=== PATIENT | male | born 1950 | race African-American/Black ===

== ENCOUNTER 2022-01-29 12:04 | Inpatient (IN) | payer MEDICAID ==
[~2022-01-29] VITALS: Ht 167.6 cm; Wt 79.4 kg
[2022-01-29 14:36] LABS: CHLORIDE 101 mEq/L (98-107)
[2022-01-29 14:41] LABS: BASOPHILS % 0.3 % (0.0-2.0); HEMATOCRIT. 40.3 % (42.0-52.0); HEMOGLOBIN. 14.1 g/dL (14.0-18.0); LYMPHOCYTES % 34.9 % (20.0-50.0); MEAN CORPUSCULAR HEMOGLOBIN 29.1 pg (28.0-32.0); MEAN CORPUSCULAR VOLUME 83.3 fL (80.0-94.0); MEAN PLATELET VOLUME 8.6 fl (7.4-10.4); NEUTROPHILS % 55.8 % (40.0-76.0); PLATELET 211 x1000/uL (130-400); RED BLOOD CELL COUNT 4.83 mill/uL (4.7-6.1); RED CELL DISTRIBUTION WIDTH 13.3 % (11.6-14.6)
[2022-01-29] MEDS ORDERED: DOCUSATE SODIUM 100MG CAPSULE PO PRN (15:30)
[2022-01-29] MEDS ORDERED: CLONIDINE 0.1MG TABLET PO PRN (15:30)
[2022-01-29] MEDS ORDERED: ACETAMINOPHEN 325MG TABLET PO PRN ×2 (15:30)
[2022-01-29] MEDS ORDERED: ONDANSETRON HCL 4MG/2ML INJ IV PRN (15:30)
[2022-01-29] MEDS ORDERED: IPRATROPIUM/ALBUTEROL 0.5-3(2.5)MG/3ML NEB HHN PRN (15:30)
[2022-01-29] MEDS ORDERED: GUAIFENESIN 200MG/10ML SUGAR FREE UDC PO PRN (15:30)
[2022-01-29 16:54] LABS: CLARITY URINE CLEAR (CLEAR); COLOR URINE YELLOW (YELLOW); KETONES URINE NEGATIVE (NEGATIVE); LEUKOCYTE ESTERASE URINE NEGATIVE (NEGATIVE); NITRITE URINE NEGATIVE (NEGATIVE); OCCULT BLOOD URINE NEGATIVE (NEGATIVE); PH URINE 5.5 (4.5-8.0); PROTEIN URINE NEGATIVE (NEGATIVE); SPECIFIC GRAVITY URINE 1.014 (1.005-1.030); UROBILINOGEN URINE 0.2 E.U./dL (0.2-1.0)
[2022-01-29 17:00] LABS: D-DIMER 0.35 mg/L FEU (<0.50); PROTHROMBIN TIME 11.2 sec (9.6-11.0)
[2022-01-29] MEDS: ENOXAPARIN 40MG/0.4ML SYR SUBCUT SCH (17:18)
[2022-01-29] MEDS: ATORVASTATIN CALCIUM 40MG TABLET PO SCH (21:55)
[2022-01-29] MEDS: FAMOTIDINE 20MG TABLET PO SCH (21:56)
[2022-01-30] VITALS (7 sets, daily range): BP systolic 116–141; BP diastolic 47–82
[2022-01-30] MEDS ORDERED: ATOR-2 MT (08:57)
[2022-01-30] MEDS ORDERED: ASPI-1497 MT (08:57)
[2022-01-30] MEDS ORDERED: CLOP-31 MT (08:57)
[2022-01-30] MEDS ORDERED: ASPIRIN 81MG EC TABLET PO SCH (09:00)
[2022-01-30] MEDS ORDERED: CLOPIDOGREL 75MG TABLET PO SCH (09:00)
[2022-01-30] MEDS ORDERED: LIDOCAINE HCL 1% 20ML VIAL (Pyxis) INJ ONE (10:08)
[2022-01-30] MEDS ORDERED: IODIXANOL 320MG/ML 100 ML BOTTLE IV ONE (10:09)
[2022-01-30] MEDS ORDERED: HEPARIN 1000 UNITS/ML 10ML ONE (10:09)
[2022-01-30] MEDS ORDERED: FENTANYL CITRATE/PF 50MCG/ML 2ML VIAL ONE (10:45)
[2022-01-30] MEDS ORDERED: MIDAZOLAM HCL 2 MG/2 ML VIAL ONE (10:45)
[2022-01-30] MEDS ORDERED: ASPIRIN/SOD BICARB/CITRIC ACID 324MG TAB EFF ONE (10:45)
[2022-01-30 11:29] LABS: BASOPHILS % 0.6 % (0.0-2.0); EOSINOPHILS % 4.3 % (0.0-5.0); HEMATOCRIT. 42.4 % (42.0-52.0); HEMOGLOBIN. 14.7 g/dL (14.0-18.0); LYMPHOCYTES % 35.5 % (20.0-50.0); MEAN CORPUSCULAR HEMOGLOBIN 29.2 pg (28.0-32.0); MEAN CORPUSCULAR VOLUME 84.2 fL (80.0-94.0); MEAN PLATELET VOLUME 8.8 fl (7.4-10.4); MONOCYTES % 6.8 % (2.0-8.0); NEUTROPHILS % 52.8 % (40.0-76.0); PLATELET 200 x1000/uL (130-400); RED BLOOD CELL COUNT 5.04 mill/uL (4.7-6.1); RED CELL DISTRIBUTION WIDTH 13.7 % (11.6-14.6)
[2022-01-30] MEDS ORDERED: ATROPINE SULFATE 1MG/10ML SYR IV PRN (11:30)
[2022-01-30] MEDS ORDERED: ACETAMINOPHEN 325MG TABLET PO PRN ×2 (11:30→12:30)
[2022-01-30 11:40] LABS: CHLORIDE 101 mEq/L (98-107)
[2022-01-30 11:52] LABS: CREATINE KINASE 73 IU/L (39-308); CREATINE KINASE MB FRACTION < 1.0 ng/mL (0.5-3.6)
[2022-01-30 11:54] LABS: HDL CHOLESTEROL 41 mg/dL (40-59); LDL CHOLESTEROL 141 mg/dL (5-100); T4 FREE 1.07 ng/dL (0.76-1.46)
[2022-01-30] MEDS ORDERED: NALOXONE HCL 0.4MG/ML VIAL IV PRN (12:00)
[2022-01-30] MEDS ORDERED: SODIUM CHLORIDE 0.45% 1,000 ML IV ONE (12:00)
[2022-01-30 13:19] LABS: BASOPHILS % 0.3 % (0.0-2.0); EOSINOPHILS % 3.6 % (0.0-5.0); HEMATOCRIT. 41.9 % (42.0-52.0); HEMOGLOBIN. 14.7 g/dL (14.0-18.0); LYMPHOCYTES % 35.5 % (20.0-50.0); MEAN CORPUSCULAR HEMOGLOBIN 29.1 pg (28.0-32.0); MEAN CORPUSCULAR VOLUME 83.1 fL (80.0-94.0); MEAN PLATELET VOLUME 8.6 fl (7.4-10.4); MONOCYTES % 5.9 % (2.0-8.0); NEUTROPHILS % 54.7 % (40.0-76.0); PLATELET 216 x1000/uL (130-400); RED BLOOD CELL COUNT 5.05 mill/uL (4.7-6.1); RED CELL DISTRIBUTION WIDTH 13.6 % (11.6-14.6)
[2022-01-30] MEDS ORDERED: DEXT 5%/0.9% NACL 1,000 ML IV SCH (14:45)
[2022-01-30 15:56] LABS: PARTIAL THROMBOPLASTIN TIME 32.5 sec (23.4-31.0); PROTHROMBIN TIME 11.1 sec (9.6-11.0)
[2022-01-30] MEDS: ENOXAPARIN 40MG/0.4ML SYR SUBCUT SCH (17:00)
[2022-01-30] MEDS ORDERED: DEXT 5%/0.45% NACL 1000ML 1,000 ML IV SCH (20:00)
[2022-01-30] MEDS: FAMOTIDINE 20MG TABLET PO SCH (20:54)
[2022-01-30] MEDS: ATORVASTATIN CALCIUM 40MG TABLET PO SCH (20:54)
[2022-01-31] VITALS (7 sets, daily range): BP systolic 92–128; BP diastolic 50–79
[2022-01-31 07:52] LABS: BASOPHILS % 0.4 % (0.0-2.0); EOSINOPHILS % 4.9 % (0.0-5.0); HEMOGLOBIN. 14.8 g/dL (14.0-18.0); LYMPHOCYTES % 26.5 % (20.0-50.0); MEAN CORPUSCULAR HEMOGLOBIN 29.3 pg (28.0-32.0); MEAN CORPUSCULAR VOLUME 82.9 fL (80.0-94.0); MEAN PLATELET VOLUME 8.8 fl (7.4-10.4); MONOCYTES % 5.3 % (2.0-8.0); NEUTROPHILS % 62.9 % (40.0-76.0); PLATELET 197 x1000/uL (130-400); RED BLOOD CELL COUNT 5.07 mill/uL (4.7-6.1); RED CELL DISTRIBUTION WIDTH 13.7 % (11.6-14.6)
[2022-01-31 09:30] LABS: CHLORIDE 103 mEq/L (98-107)
[2022-01-31] MEDS: ASPIRIN 81MG TABLET PO SCH (12:56)
[2022-01-31] MEDS ORDERED: DOCUSATE SODIUM 100MG CAPSULE PO SCH (21:00)
[2022-01-31] MEDS ORDERED: BISACODYL 10MG SUPP PR PRN (21:00)
[2022-01-31] MEDS ORDERED: CHLORHEXIDINE GLUCONATE 4% EXTERNAL USE TOP SCH (21:00)
[2022-01-31] MEDS ORDERED: ASCORBIC ACID 500 MG TABLET PO SCH (21:00)
[2022-01-31] MEDS ORDERED: DIPHENHYDRAMINE 25MG CAPSULE PO PRN (21:00)
[2022-01-31] MEDS: FAMOTIDINE 20MG TABLET PO SCH (21:14)
[2022-01-31] MEDS: ATORVASTATIN CALCIUM 40MG TABLET PO SCH (21:14)
[2022-01-31] MEDS: ALLOPURINOL 300 MG TABLET PO SCH (21:17)
[2022-02-01] VITALS (54 sets, daily range): BP systolic 96–152; BP diastolic 43–86
[2022-02-01] MEDS: DEXT 5%/0.45% NACL 1000ML 1,000 ML IV SCH ×2 (00:03→09:16)
[2022-02-01] MEDS ORDERED: BLOOD SUGAR DIAGNOSTIC STRIP TEST SCH ×2 (04:00→12:00)
[2022-02-01] MEDS ORDERED: CEFAZOLIN 2,000 MG in DEXT 5% WATER 100 ML IV NR (04:00)
[2022-02-01] MEDS ORDERED: DOBUTAMINE 250MG PREMIX 250 ML IV SCH (04:00)
[2022-02-01] MEDS ORDERED: NOREPINEPHRINE 8 MG in DEXT 5% WATER 242 ML IV PRN (04:00)
[2022-02-01] MEDS ORDERED: DEL NIDO ELECTROLYTE-S(PH 7.4) 1,000 ML IV NR ×2 (04:00)
[2022-02-01] MEDS ORDERED: NICARDIPINE 40MG/200ML PREMIX 200 ML IV PRN (04:00)
[2022-02-01] MEDS ORDERED: EPINEPHRINE 5 MG in DEXT 5% WATER 245 ML IV PRN ×2 (04:00→10:30)
[2022-02-01] MEDS ORDERED: PAPAVERINE HCL 180MG in SODIUM CHLORIDE 0.9% 24ML IV NR (04:00)
[2022-02-01] MEDS ORDERED: INSULIN REGULAR 100U/100ML PMX 100 ML IV NR (04:00)
[2022-02-01 04:07] LABS: BASOPHILS % 0.2 % (0.0-2.0); EOSINOPHILS % 7.9 % (0.0-5.0); HEMATOCRIT. 40.7 % (42.0-52.0); HEMOGLOBIN. 14.5 g/dL (14.0-18.0); LYMPHOCYTES % 26.8 % (20.0-50.0); MEAN CORPUSCULAR HEMOGLOBIN 29.6 pg (28.0-32.0); MEAN PLATELET VOLUME 8.4 fl (7.4-10.4); MONOCYTES % 6.8 % (2.0-8.0); NEUTROPHILS % 58.3 % (40.0-76.0); PLATELET 188 x1000/uL (130-400); RED CELL DISTRIBUTION WIDTH 13.3 % (11.6-14.6)
[2022-02-01 04:22] LABS: CHLORIDE 103 mEq/L (98-107)
[2022-02-01] MEDS ORDERED: HEPARIN 1000 UNITS/ML 10ML ONE ×2 (05:33→09:14)
[2022-02-01] MEDS ORDERED: POLYMYXIN B SULFATE 500000 UNITS/VIAL ONE (05:35)
[2022-02-01] MEDS ORDERED: THROMBIN (BOVINE) 5000 UNITS/VIAL TOP ONE (05:35)
[2022-02-01] MEDS ORDERED: DOPAMINE 400MG/250ML PREMIX 250 ML IV ONE (05:36)
[2022-02-01] MEDS ORDERED: SKIN ADHESIVE 0.7 GM EA TOP ONE (05:36)
[2022-02-01] MEDS: ALLOPURINOL 300 MG TABLET PO SCH (05:36)
[2022-02-01] MEDS ORDERED: NICARDIPINE 40MG/200ML PREMIX 200 ML IV ONE (06:17)
[2022-02-01] MEDS ORDERED: SEVOFLURANE 250 ML LIQUID INH ONE (06:18)
[2022-02-01] MEDS ORDERED: FENTANYL CITRATE/PF 50MCG/ML 2ML VIAL ONE (07:38)
[2022-02-01] MEDS ORDERED: ROCURONIUM BROMIDE 10MG/ML VIAL 5ML IV ONE ×2 (07:38→09:16)
[2022-02-01] MEDS: ASPIRIN 81MG TABLET PO SCH (09:00)
[2022-02-01] MEDS ORDERED: CHLORHEXIDINE GLUCONATE 4% EXTERNAL USE TOP SCH (09:00)
[2022-02-01] MEDS ORDERED: DEXAMETHASONE 4MG/ML 1ML VIAL ONE (09:14)
[2022-02-01] MEDS ORDERED: SODIUM BICARBONATE 8.4% 1 MEQ/ML 50ML SYR IV ONE (09:14)
[2022-02-01] MEDS ORDERED: MAGNESIUM 2 G PREMIX 50 ML IV PRN ×2 (09:15→10:30)
[2022-02-01] MEDS ORDERED: MAGNESIUM SULFATE 3 GM in DEXT 5% WATER 100 ML IV PRN ×2 (09:15→10:30)
[2022-02-01] MEDS ORDERED: MAGNESIUM 1 G PREMIX 100 ML IV PRN ×2 (09:15→10:30)
[2022-02-01] MEDS ORDERED: DEXTROSE 50% WATER 50ML SYRINGE IV PRN ×2 (09:15)
[2022-02-01] MEDS ORDERED: KCL 10MEQ/50ML PREMIX 150 ML IV PRN (09:15)
[2022-02-01] MEDS ORDERED: PROTAMINE SULFATE 10MG/ML VIAL 25ML IV ONE (09:32)
[2022-02-01] MEDS ORDERED: DEXMEDETOMIDINE 400 MCG/100 ML 100 ML IV ONE (09:32)
[2022-02-01] MEDS ORDERED: CALCIUM CHLORIDE 1GM/10ML SYR IV ONE (09:44)
[2022-02-01] MEDS ORDERED: NEOSTIGMINE METHYLSULFATE 1MG/ML 10 ML VIAL ONE (10:10)
[2022-02-01] MEDS ORDERED: GLYCOPYRROLATE 0.2 MG/ML 2ML VIAL ONE ×2 (10:10→10:11)
[2022-02-01] MEDS ORDERED: ALBUMIN HUMAN 25GM/100ML (25%) IV PRN (10:30)
[2022-02-01] MEDS ORDERED: CALCIUM CHLORIDE 5,000 MG in DEXT 5% WATER 500 ML IV PRN (10:30)
[2022-02-01] MEDS ORDERED: DOPAMINE 400MG/250ML PREMIX 250 ML IV PRN (10:30)
[2022-02-01] MEDS ORDERED: CEFAZOLIN 1000MG PREMIX 50 ML IV SCH (10:30)
[2022-02-01] MEDS ORDERED: CALCIUM CHLORIDE 3,000 MG in DEXT 5% WATER 250 ML IV PRN (10:30)
[2022-02-01] MEDS ORDERED: ALBUMIN HUMAN 12.5G/250ML (5%) IV PRN (10:30)
[2022-02-01] MEDS ORDERED: SODIUM CHLORIDE 0.9% 500 ML IV PRN (10:30)
[2022-02-01] MEDS ORDERED: ONDANSETRON HCL 4MG/2ML INJ IV PRN (10:30)
[2022-02-01] MEDS ORDERED: ACETAMINOPHEN 325MG TABLET PO PRN (10:30)
[2022-02-01 11:00] LABS: BG BASE EXCESS 0.6 mmol/L (-2.0-2.0); BG CARBOXYHEMOGLOBIN 0.4 % (0.5-1.5); BG DEOXYHEMOGLOBIN 1.6 % (0.0-5.0); BG FRACTION INSPIRED OXYGEN 80; BG HCO3 ACT 26.8 mmol/L (22.0-26.0); BG OXYGEN SATURATION 98.4 % (92.0-98.5); BG PCO2 49.1 mmHg (35.0-45.0); BG PH 7.355 (7.350-7.450); BG PO2 145.6 mmHg (75.0-100.0); BG SAMPLE SITE ALINE; BG TOTAL HEMOGLOBIN 13.8 g/dL (12.0-18.0); BG VENT MODE MASK - SIMPLE
[2022-02-01] MEDS ORDERED: FENTANYL CITRATE/PF 50MCG/ML 2ML VIAL IV PRN (11:00)
[2022-02-01] MEDS ORDERED: DEXT 5%/0.45% NACL 1000ML 1,000 ML IV SCH (11:00)
[2022-02-01] MEDS: ALBUMIN HUMAN 25GM/100ML (25%) IV NR ×2 (11:00→18:54)
[2022-02-01] MEDS: BLOOD SUGAR DIAGNOSTIC STRIP TEST SCH ×12 (11:06→21:42)
[2022-02-01] MEDS: IPRATROPIUM/ALBUTEROL 0.5-3(2.5)MG/3ML NEB HHN SCH ×3 (11:38→20:18)
[2022-02-01 11:44] LABS: CHLORIDE 114 mEq/L (98-107)
[2022-02-01] MEDS: MORPHINE SULFATE 2 MG/ML CPJ (NOT FOR IM USE) IV PRN ×2 (11:48→20:40)
[2022-02-01 11:52] LABS: EOSINOPHILS % 1.9 % (0.0-5.0); HEMATOCRIT. 28.2 % (42.0-52.0); HEMOGLOBIN. 9.9 g/dL (14.0-18.0); MEAN CORPUSCULAR HEMOGLOBIN 29.3 pg (28.0-32.0); MEAN CORPUSCULAR VOLUME 83.4 fL (80.0-94.0); MEAN PLATELET VOLUME 8.7 fl (7.4-10.4); MONOCYTES % 1.1 % (2.0-8.0); PLATELET 132 x1000/uL (130-400); RED BLOOD CELL COUNT 3.39 mill/uL (4.7-6.1); RED CELL DISTRIBUTION WIDTH 13.2 % (11.6-14.6)
[2022-02-01] MEDS ORDERED: INSULIN REGULAR 100U/100ML PMX 100 ML IV PRN (12:00)
[2022-02-01] MEDS: KCL 10MEQ/50ML PREMIX 200 ML IV PRN ×3 (12:29→14:53)
[2022-02-01] MEDS: CEFAZOLIN 1000MG PREMIX 50 ML IV SCH ×2 (13:55→21:43)
[2022-02-01] MEDS: BACITRACIN 15GM TUBE TOP SCH (16:02)
[2022-02-01 17:02] LABS: HEMATOCRIT. 32.1 % (42.0-52.0); HEMOGLOBIN. 11.4 g/dL (14.0-18.0); MEAN CORPUSCULAR HEMOGLOBIN 29.3 pg (28.0-32.0); MEAN CORPUSCULAR VOLUME 82.3 fL (80.0-94.0); MEAN PLATELET VOLUME 8.5 fl (7.4-10.4); PLATELET 173 x1000/uL (130-400); RED CELL DISTRIBUTION WIDTH 13.3 % (11.6-14.6)
[2022-02-01 17:08] LABS: CHLORIDE 105 mEq/L (98-107)
[2022-02-01] MEDS: DOCUSATE SODIUM 100MG CAPSULE PO SCH (17:28)
[2022-02-01 17:31] LABS: PLATELET ESTIMATE NORMAL
[2022-02-01] MEDS ORDERED: ALBUMIN HUMAN 25GM/100ML (25%) IV NR (18:00)
[2022-02-01] MEDS: DIPHENHYDRAMINE 50MG/ML VIAL IV PRN (20:37)
[2022-02-01] MEDS: ATORVASTATIN CALCIUM 40MG TABLET PO SCH (21:42)
[2022-02-01] MEDS: KETOROLAC 30MG/ML VIAL IV PRN (22:10)
[2022-02-02] VITALS (84 sets, daily range): BP systolic 97–154; BP diastolic 22–87
[2022-02-02] MEDS: BLOOD SUGAR DIAGNOSTIC STRIP TEST SCH ×8 (00:19→21:27)
[2022-02-02] MEDS: ALBUMIN HUMAN 25GM/100ML (25%) IV NR ×2 (00:20→11:30)
[2022-02-02] MEDS: IPRATROPIUM/ALBUTEROL 0.5-3(2.5)MG/3ML NEB HHN SCH ×6 (00:41→20:20)
[2022-02-02] MEDS: DIPHENHYDRAMINE 50MG/ML VIAL IV PRN ×2 (01:11→21:25)
[2022-02-02] MEDS: MORPHINE SULFATE 2 MG/ML CPJ (NOT FOR IM USE) IV PRN ×3 (01:11→21:26)
[2022-02-02 02:34] LABS: BASOPHILS % 0.1 % (0.0-2.0); HEMATOCRIT. 31.1 % (42.0-52.0); HEMOGLOBIN. 10.8 g/dL (14.0-18.0); LYMPHOCYTES % 11.3 % (20.0-50.0); MEAN CORPUSCULAR HEMOGLOBIN 28.9 pg (28.0-32.0); MEAN CORPUSCULAR VOLUME 82.7 fL (80.0-94.0); MEAN PLATELET VOLUME 9.3 fl (7.4-10.4); MONOCYTES % 6.6 % (2.0-8.0); PLATELET 190 x1000/uL (130-400); RED BLOOD CELL COUNT 3.76 mill/uL (4.7-6.1); RED CELL DISTRIBUTION WIDTH 13.8 % (11.6-14.6)
[2022-02-02 02:43] LABS: CHLORIDE 103 mEq/L (98-107)
[2022-02-02 06:23] LABS: HEMATOCRIT. 27.6 % (42.0-52.0); HEMOGLOBIN. 9.9 g/dL (14.0-18.0); LYMPHOCYTES % 8.4 % (20.0-50.0); MEAN CORPUSCULAR HEMOGLOBIN 29.8 pg (28.0-32.0); MEAN CORPUSCULAR VOLUME 83.1 fL (80.0-94.0); MEAN PLATELET VOLUME 8.8 fl (7.4-10.4); MONOCYTES % 3.5 % (2.0-8.0); NEUTROPHILS % 88.1 % (40.0-76.0); PLATELET 158 x1000/uL (130-400); RED BLOOD CELL COUNT 3.33 mill/uL (4.7-6.1); RED CELL DISTRIBUTION WIDTH 13.4 % (11.6-14.6)
[2022-02-02 06:39] LABS: CHLORIDE 107 mEq/L (98-107)
[2022-02-02] MEDS: CEFAZOLIN 1000MG PREMIX 50 ML IV SCH (07:17)
[2022-02-02] MEDS: FAMOTIDINE 20MG TABLET PO SCH (08:45)
[2022-02-02] MEDS: ASPIRIN 81MG TABLET PO SCH (08:45)
[2022-02-02] MEDS: DOCUSATE SODIUM 100MG CAPSULE PO SCH ×2 (08:45→17:31)
[2022-02-02] MEDS ORDERED: FAMOTIDINE 20MG/2ML VIAL IV SCH (09:00)
[2022-02-02] MEDS: BACITRACIN 15GM TUBE TOP SCH ×2 (09:55→17:32)
[2022-02-02] MEDS: KCL 10MEQ/50ML PREMIX 100 ML IV PRN ×2 (10:44→11:53)
[2022-02-02] MEDS ORDERED: FUROSEMIDE 40MG/4ML VIAL IVP SCH (12:00)
[2022-02-02] MEDS: KETOROLAC 30MG/ML VIAL IV PRN (12:00)
[2022-02-02] MEDS: MINERAL OIL 30ML BOTTLE PO SCH ×2 (12:45→17:31)
[2022-02-02] MEDS ORDERED: MAGNESIUM 4 G PREMIX 100 ML IV SCH (13:00)
[2022-02-02] MEDS: INSULIN LISPRO 100 UNITS/ML SUBCUT SCH ×2 (18:41→22:10)
[2022-02-02] MEDS: ATORVASTATIN CALCIUM 40MG TABLET PO SCH (21:27)
[2022-02-03] VITALS (27 sets, daily range): BP systolic 88–141; BP diastolic 60–95
[2022-02-03] MEDS: IPRATROPIUM/ALBUTEROL 0.5-3(2.5)MG/3ML NEB HHN SCH ×6 (00:42→20:31)
[2022-02-03] MEDS: DIPHENHYDRAMINE 50MG/ML VIAL IV PRN (04:19)
[2022-02-03] MEDS: KETOROLAC 30MG/ML VIAL IV PRN ×2 (04:20→15:22)
[2022-02-03 05:29] LABS: EOSINOPHILS % 0.8 % (0.0-5.0); HEMATOCRIT. 30.8 % (42.0-52.0); HEMOGLOBIN. 10.7 g/dL (14.0-18.0); LYMPHOCYTES % 22.2 % (20.0-50.0); MEAN CORPUSCULAR HEMOGLOBIN 29.3 pg (28.0-32.0); MEAN CORPUSCULAR VOLUME 83.9 fL (80.0-94.0); MEAN PLATELET VOLUME 8.7 fl (7.4-10.4); MONOCYTES % 7.5 % (2.0-8.0); NEUTROPHILS % 69.5 % (40.0-76.0); PLATELET 211 x1000/uL (130-400); RED BLOOD CELL COUNT 3.67 mill/uL (4.7-6.1); RED CELL DISTRIBUTION WIDTH 13.7 % (11.6-14.6)
[2022-02-03 05:33] LABS: CHLORIDE 99 mEq/L (98-107)
[2022-02-03] MEDS: MORPHINE SULFATE 2 MG/ML CPJ (NOT FOR IM USE) IV PRN (05:37)
[2022-02-03] MEDS ORDERED: TRAMADOL HCL/ACETAMINOPHEN 37.5/325MG TABLET PO PRN (06:45)
[2022-02-03] MEDS: TAMSULOSIN HCL 0.4MG SR CAPSULE PO SCH ×2 (07:31→08:40)
[2022-02-03] MEDS: BLOOD SUGAR DIAGNOSTIC STRIP TEST SCH ×4 (07:50→21:14)
[2022-02-03] MEDS: MINERAL OIL 30ML BOTTLE PO SCH ×3 (08:20→17:00)
[2022-02-03] MEDS: DOCUSATE SODIUM 250MG CAPSULE PO SCH ×2 (08:20→17:00)
[2022-02-03] MEDS: FAMOTIDINE 20MG TABLET PO SCH (08:20)
[2022-02-03] MEDS: INSULIN LISPRO 100 UNITS/ML SUBCUT SCH ×4 (08:20→21:17)
[2022-02-03] MEDS: ASPIRIN 81MG TABLET PO SCH (08:20)
[2022-02-03] MEDS: BACITRACIN 15GM TUBE TOP SCH ×2 (08:23→17:42)
[2022-02-03] MEDS ORDERED: ASPIRIN 81MG TABLET PO SCH (09:00)
[2022-02-03] MEDS: ATORVASTATIN CALCIUM 40MG TABLET PO SCH (21:14)
[2022-02-04] VITALS (10 sets, daily range): BP systolic 95–138; BP diastolic 58–77
[2022-02-04] MEDS: IPRATROPIUM/ALBUTEROL 0.5-3(2.5)MG/3ML NEB HHN SCH ×7 (00:38→23:34)
[2022-02-04] MEDS: MORPHINE SULFATE 2 MG/ML CPJ (NOT FOR IM USE) IV PRN (04:06)
[2022-02-04] MEDS: INSULIN LISPRO 100 UNITS/ML SUBCUT SCH ×4 (06:57→21:00)
[2022-02-04] MEDS: BLOOD SUGAR DIAGNOSTIC STRIP TEST SCH ×4 (06:57→21:00)
[2022-02-04 07:22] LABS: BASOPHILS % 0.2 % (0.0-2.0); EOSINOPHILS % 4.7 % (0.0-5.0); HEMATOCRIT. 32.1 % (42.0-52.0); HEMOGLOBIN. 11.4 g/dL (14.0-18.0); LYMPHOCYTES % 30.2 % (20.0-50.0); MEAN CORPUSCULAR HEMOGLOBIN 29.6 pg (28.0-32.0); MEAN CORPUSCULAR VOLUME 83.5 fL (80.0-94.0); MEAN PLATELET VOLUME 8.5 fl (7.4-10.4); MONOCYTES % 7.9 % (2.0-8.0); PLATELET 196 x1000/uL (130-400); RED BLOOD CELL COUNT 3.85 mill/uL (4.7-6.1); RED CELL DISTRIBUTION WIDTH 13.4 % (11.6-14.6)
[2022-02-04 07:29] LABS: CHLORIDE 99 mEq/L (98-107)
[2022-02-04] MEDS ORDERED: FUROSEMIDE 40MG/4ML VIAL IVP NR (08:15)
[2022-02-04] MEDS ORDERED: MAGNESIUM 4 G PREMIX 100 ML IV NR (08:15)
[2022-02-04] MEDS: KETOROLAC 30MG/ML VIAL IV PRN ×2 (08:18→23:10)
[2022-02-04] MEDS: ASPIRIN 81MG TABLET PO SCH (09:06)
[2022-02-04] MEDS: DOCUSATE SODIUM 250MG CAPSULE PO SCH ×2 (09:06→16:24)
[2022-02-04] MEDS: TAMSULOSIN HCL 0.4MG SR CAPSULE PO SCH (09:06)
[2022-02-04] MEDS: FAMOTIDINE 20MG TABLET PO SCH (09:06)
[2022-02-04] MEDS: MINERAL OIL 30ML BOTTLE PO SCH ×2 (09:06→16:24)
[2022-02-04] MEDS: BACITRACIN 15GM TUBE TOP SCH ×2 (09:07→17:00)
[2022-02-04] MEDS ORDERED: LACTULOSE 20G/30ML UDC PO NR (15:30)
[2022-02-04] MEDS ORDERED: NALOXONE HCL 0.4MG/ML VIAL IV PRN (17:00)
[2022-02-04] MEDS: ATORVASTATIN CALCIUM 40MG TABLET PO SCH (22:07)
[2022-02-05] VITALS: BP 100/55
[2022-02-05] MEDS: IPRATROPIUM/ALBUTEROL 0.5-3(2.5)MG/3ML NEB HHN SCH ×3 (03:25→12:55)
[2022-02-05 04:05] VITALS: BP 91/65
[2022-02-05] MEDS: BLOOD SUGAR DIAGNOSTIC STRIP TEST SCH ×2 (06:38→11:50)
[2022-02-05 08:00] VITALS: BP 101/70
[2022-02-05] MEDS: TAMSULOSIN HCL 0.4MG SR CAPSULE PO SCH (08:55)
[2022-02-05] MEDS: FAMOTIDINE 20MG TABLET PO SCH (08:55)
[2022-02-05] MEDS: ASPIRIN 81MG TABLET PO SCH (08:55)
[2022-02-05] MEDS: DOCUSATE SODIUM 250MG CAPSULE PO SCH ×2 (08:55→09:00)
[2022-02-05] MEDS: BACITRACIN 15GM TUBE TOP SCH (08:56)
[2022-02-05] MEDS: MINERAL OIL 30ML BOTTLE PO SCH ×2 (08:56→09:00)
[2022-02-05] MEDS: INSULIN LISPRO 100 UNITS/ML SUBCUT SCH ×2 (08:57→13:21)
[2022-02-05 12:00] VITALS: BP 109/71
[2022-02-05 14:54] VITALS: BP 109/71
[2022-03-02] MEDS ORDERED: IBUP-2029 PO (13:12)
[2022-03-02] MEDS ORDERED: DOCU-138 PO (13:12)
[2022-03-02] MEDS ORDERED: METO25TA6 PO (13:14)
== END 2022-02-05 15:00 | disposition home health service (06) | DRG 165 ==
LOC: ER 12:04 → 8WST 15:45 → EDBEDREQTM 15:56 → EDBEDREQ 15:56 → ENRESERV 01-30 06:29 → 3WST 01-30 12:11 → CVICU 02-01 09:45 → 3WST 02-04 04:01
PROVIDERS: ADMIT Internal Medicine; ATTEND Internal Medicine
PROC: 4A023N7 Measurement of Cardiac Sampling and Pressure, Left Heart, Percutaneous Approach (ICD-10-PCS; 2022-01-30)
PROC: B2111ZZ Fluoroscopy of Multiple Coronary Arteries using Low Osmolar Contrast (ICD-10-PCS; 2022-01-30)
PROC: 02100Z9 Bypass Coronary Artery, One Artery from Left Internal Mammary, Open Approach (ICD-10-PCS; principal; 2022-02-01)
PROC: 021109W Bypass Coronary Artery, Two Arteries from Aorta with Autologous Venous Tissue, Open Approach (ICD-10-PCS; 2022-02-01)
PROC: 06BQ4ZZ Excision of Left Saphenous Vein, Percutaneous Endoscopic Approach (ICD-10-PCS; 2022-02-01)
DX: I21.4 Non-ST elevation (NSTEMI) myocardial infarction (principal); I50.33 Acute on chronic diastolic (congestive) heart failure; E44.1 Mild protein-calorie malnutrition; R64 Cachexia; E11.9 Type 2 diabetes mellitus without complications; E78.5 Hyperlipidemia, unspecified; D64.9 Anemia, unspecified; I25.2 Old myocardial infarction; I11.0 Hypertensive heart disease with heart failure; I25.110 Atherosclerotic heart disease of native coronary artery with unstable angina pectoris; R53.81 Other malaise; R26.9 Unspecified abnormalities of gait and mobility; Z95.5 Presence of coronary angioplasty implant and graft; Z79.02 Long term (current) use of antithrombotics/antiplatelets; Z79.82 Long term (current) use of aspirin; Z79.899 Other long term (current) drug therapy; Z82.49 Family history of ischemic heart disease and other diseases of the circulatory system; Z87.891 Personal history of nicotine dependence
CPT/HCPCS: 36415; 36600; 71045; 80048; 80053; 80061; 80076; 81003; 82375; 82550; 82553; 82805; 82962; 83036; 83735; 83880; 84132; 84439; 84443; 84484; 85025; 85347; 85379; 86850; 86900; 86920; 87426; 93005; 93306; 93458; 93880; 93970; 94640; 97116; 97162; 97166; 97530; 97535; 99285; C1729; C1751; C1758; C1769; C1887; C1893; J0690; J1100; J1200; J1265; J1644; J1650; J1815; J1885; J1940; J2250; J2270; J2440; J2710; J2720; J3010; J3475; J3480; J3490; J7042; J7060; L3908; P9047; Q9957; Q9967